=== PATIENT | female | born 1935 | race Caucasian/White ===

== ENCOUNTER → 2016-12-05 | Outpatient (CLI) | payer MEDICARE, BC ==
--- NOTE | ~2016-12-05 | ECHO ---
Transthoracic Echocardiography Report (TTE) Demographics Patient Name PEYMAN HACKETT Date of Study 12/05/2016 Patient Number [id number] Visit Number [id number] Date of 1935 Room Number Accession Number [id number] Gender Female Age 81 year(s) Referring Sigifredo Hudson MD Starter Mechanic Isa Short Physician [facility] Chance Gongora Physician Interpreting Codey Esqueda MD Patient Case Manager Physician Supervising Ordering Physician Sigifredo Hudson MD, MD/P Nurse [employer] Equipment Servicer Conclusions Contractility Score Summary Normal Left Ventricular contractility was noted. Summary The estimated left ventricular ejection fraction is 60% The left ventricle is normal in size . Diastolic assessment reveals Grade I diastolic dysfunction. Mild mitral annular calcification. Mild-moderate mitral regurgitation by color Doppler. There is mild aortic regurgitation by color Doppler. Mild tricuspid regurgitation by color Doppler. There is mild pulmonary hypertension. The pulmonary pressure (RVSP) is 40 mmHg. The ascending aorta appears mildly dilated. The maximum diameter measures 3.6 cm. Procedure Type of Study TTE procedure:2D Echocardiogram, M-Mode, Doppler , Color Doppler. Procedure Date Date: 12/05/2016 Start: 09:24 AM Study Location: Echo Lab Technical Quality: Adequate visualization Indications:Shortness of breath. Additional Indications:mildly enlarged heart Appropriate Use Criteria: 9 Patient Status: Routine HR: 56 bpm BP: 156/73 mmHg M-Mode/2D Measurements LV Diastolic Dimension: 4.15 cm LV Systolic Dimension: 2.76 cm LV Septum Diastolic: 1.02 cm LV PW Diastolic: 0.92 cm AO Root Dimension: 3.1 cm Cardiac Output: 2.74 l/min AV Cusp Separation: 1.5 cm RV Diastolic Dimension: 3.41 cm LA volume: 28 ml LVOT: 1.7 cm RV Base: 3.01 cm LVOT VTI: 21.6 cm RV Mid: 1.97 cm LV Stroke volume: 49 ml TAPSE: 1.73 cm TDI-S': 15.8 cm/s Doppler Measurements AV Peak Velocity: 1.23 m/s MV Peak E-Wave: 0.88 m/s AV Peak Gradient: 6.05 mmHg MV Peak A-Wave: 1.28 m/s AV Mean Gradient: 4 mmHg MV E/A Ratio: 0.68 LVOT Peak Velocity: 0.93 m/s MV P1/2t: 79 msec AV P1/2t: 900 msec TR Gradient:37.21 mmHg PV Peak Velocity: 0.94 m/s Estimated RAP:3 mmHg PV Peak Gradient: 3.56 mmHg Estimated RVSP: 40 mmHg Estimated PASP: 40.21 mmHg E' Septal Velocity: 0.05 m/s A' Septal Velocity: 0.1 m/s E' Lateral Velocity: 0.1 m/s A' Lateral Velocity: 0.07 m/s Findings Left Ventricle The left ventricle is normal in size . Diastolic assessment reveals Grade I diastolic dysfunction. Right Ventricle Normal right ventricle structure and function. Left Atrium Normal left atrial size. Right Atrium Normal right atrial size. IVC measures 1.37 cm with inspiratory collapse. Mitral Valve Mild mitral annular calcification. Moderate mitral regurgitation by color Doppler. Aortic Valve The aortic valve is mildly sclerotic. There is mild to moderate aortic regurgitation by color Doppler. Tricuspid Valve Mild-moderate tricuspid regurgitation by color Doppler. There is mild pulmonary hypertension. The pulmonary pressure (RVSP) is 40 mmHg. Pulmonic Valve Normal pulmonic valve structure and function. Pericardial Effusion No evidence of pericardial effusion. Miscellaneous Visualized portions of the aortic root appear normal in size. The ascending aorta appears mildly dilated. The maximum diameter measures 3.6 cm. Pleural Effusion No evidence of pleural effusion. Contractility Score LV regional wall motion:(0-Non visualized 1-Normal 2-Hypokinesis 3-Akinesis 4-Dyskinesis 5-Aneurysm) Signature dtt: Dheeraj Alegre (cardio) dtd: 02/28/17 0924 Physician Self Edit
== END | disposition disaster alternative care site (69) ==
LOC: GCAR 09:00
DX: R06.02 Shortness of breath (principal); I51.7 Cardiomegaly; I08.3 Combined rheumatic disorders of mitral, aortic and tricuspid valves; I27.2 Other secondary pulmonary hypertension